=== PATIENT | female | born 1960 ===

== ENCOUNTER 2024-03-30 10:19 | Day surgery (SDC) | payer BC ==
[2024-03-30 11:47] VITALS: RESP 16; TEMP 98.4
[2024-03-30] MEDS ORDERED: LIDOCAINE 1% (10MG/ML) FOR IV START INTRADERMA PRN (11:47)
[2024-03-30] MEDS: IV FLUID CONTINUATION 1,000 ML IV ONE (11:51)
[2024-03-30] MEDS: LACTATED RINGERS 1,000 ML IV SCH (11:52)
[2024-03-30] MEDS ORDERED: PROPOFOL 10 MG/ML 20 ML VIAL IV ONE (12:36)
--- NOTE | 2024-03-30 12:43 | P.PCN ---
Date of Procedure: 03/30/24 Procedure(s) Performed: BRIEF HISTORY: Patient is a 63-year-old, pleasant, white female scheduled to have endoscopy as a part of evaluation of an episode of emesis that happened 3 weeks ago.. PROCEDURE PERFORMED: Esophagogastroduodenoscopy with biopsy PREOPERATIVE DIAGNOSIS: Coffee-ground emesis. IV sedation per anesthesia. PROCEDURE: After informed consent was obtained, the patient was brought into the endoscopy unit. IV sedation was administered by Anesthesia under continuous monitoring. Initially the Olympus GIF-140 video endoscope was inserted into the mouth. Esophagus intubated without any difficulty. It was gradually advanced into the stomach and duodenum and carefully examined. The bulb and the second part of the duodenum appeared normal. Mild duodenitis in the duodenal bulb noted. The scope at this time was withdrawn to the stomach, adequately insufflated with air, and upon careful examination, mucosa of the antrum, scattered erosions but no ulcerations and biopsies were done from this area. Mucosa body, cardia and the fundus appeared normal. The scope was then withdrawn into the esophagus. Mild hiatal hernia noted. The GE junction was located at 39 cm from the incisors. The esophagus appeared normal. There were no erosions or ulcerations seen and the patient tolerated the procedure well. IMPRESSION: 1. Antral erosive gastritis. 2. Mild duodenitis 3. Small hiatal hernia. RECOMMENDATIONS: The findings of this examination were discussed with the patient as well as her family. She was advised to follow-up with the biopsy results. Continue with Protonix 40 mg daily..
[2024-03-30 13:02] VITALS: BP 155/88; PULSE 75
== END 2024-03-30 13:16 | disposition home or self-care (01) ==
LOC: ORWHC2ENDO 10:19
PROVIDERS: ATTEND Internal Medicine Gastroenterology
CPT/HCPCS: 43239; 88305